=== PATIENT | male | born 1990 | race Caucasian/White ===

== ENCOUNTER 2021-08-08 16:26 | Emergency (ER) | payer OTHER, MEDICAID ==
[~2021-08-08] VITALS: Ht 193 cm; Wt 109.1 kg
[2021-08-08 17:14] LABS: BASOPHILS % (AUTO) 0.4 % (0-1); EOSINOPHILS % (AUTO) 0.1 % (0-6); HEMATOCRIT 43.1 % (42.0-52.0); HEMOGLOBIN 15.2 g/dl (14.0-17.9); LYMPHOCYTES # (AUTO) 2.5 X10'3 (1.1-4.8); LYMPHOCYTES % (AUTO) 23.7 % (21-51); MEAN CORPUSCULAR HGB CONC 35.4 g/dL (33.0-36.5); MEAN CORPUSCULAR VOLUME 90.5 FL (78-98); MEAN PLATELET VOLUME 6.3 FL (7.4-10.4); MONOCYTES # (AUTO) 0.7 X10'3 (0-0.9); MONOCYTES % (AUTO) 6.9 % (2-12); NEUTROPHILS # (AUTO) 7.2 X10'3 (1.8-7.7); NEUTROPHILS % (AUTO) 68.9 % (42-75); PLATELET COUNT 207 X10'3 (140-440); RED BLOOD COUNT 4.76 X10'6 (4.70-6.10); RED CELL DISTRIBUTION WIDTH 14.4 % (11.5-14.5); WHITE BLOOD COUNT 10.5 X10'3 (4.5-11.0)
[2021-08-08 17:30] LABS: ALANINE AMINOTRANSFERASE 39 U/L (12-78); ALBUMIN/GLOBULIN RATIO 1.1 (1.1-1.5); ALKALINE PHOSPHATASE 89 IU/L (46-116); ANION GAP 9 (8-16); ASPARTATE AMINO TRANSFERASE 18 U/L (10-37); BILIRUBIN,TOTAL 0.5 MG/DL (0.1-1.0); BLOOD UREA NITROGEN 17 MG/DL (7-18); BUN/CREATININE RATIO 13.2 (5.4-32.0); CALCIUM 9.1 MG/DL (8.5-10.1); CHLORIDE 108 MMOL/L (99-107); CREATININE 1.29 MG/DL (0.60-1.10); GLUCOSE 95 MG/DL (70-104); SODIUM 144 MMOL/L (135-145); TOTAL CARBON DIOXIDE 27.4 MMOL/L (24-32); TOTAL PROTEIN 7.5 G/DL (6.4-8.2); eGFR 65 ML/MIN
[2021-08-08 17:40] LABS: ETHANOL < 0.010 GM/DL (0.0-0.010); VALPROATE 104 UG/ML (50-100)
[2021-08-08 17:41] LABS: POTASSIUM 4.4 MMOL/L (3.5-5.1)
[2021-08-08 17:55] LABS: COLOR,URINE YELLOW (Yellow); UA COLLECTION TYPE CLN CATCH MIDSTREAM
[2021-08-08 17:56] LABS: CLARITY,URINE SLIGHTLY CLOUDY (Clear); GLUCOSE, URINE NEGATIVE (Neg); KETONES,URINE NEGATIVE (Neg); LEUKOCYTE ESTERASE ,URINE NEGATIVE (Neg); NITRITES, URINE NEGATIVE (Neg); OCCULT BLOOD,URINE NEGATIVE (Neg); PROTEIN,URINE NEGATIVE (Neg); UROBILINOGEN,URINE 0.2 E.U/dL (0.2-1.0)
[2021-08-08 18:01] LABS: BACTERIA,URINE FEW /HPF (Neg); CAL OXALATE CRYSTALS 1+ /HPF (NEGATIVE); MUCUS STRANDS MANY /LPF (Neg); RBC,URINE 0-2 /HPF (0-2); SQUAMOUS EPITHELIAL CELL,UR MODERATE /LPF (FEW); WBC,URINE 0-4 /HPF (0-4)
[2021-08-08 18:09] LABS: URINE AMPHETAMINE SCREEN NEGATIVE (Neg); URINE BARBITUATE SCREEN NEGATIVE (Neg); URINE BENZODIAZEPINES SCREEN NEGATIVE (Neg); URINE CANNABINOID SCREEN POSITIVE (Neg); URINE COCAINE SCREEN NEGATIVE (Neg); URINE METHADONE SCREEN NEGATIVE (Neg); URINE OPIATE SCREEN NEGATIVE (Neg); URINE PHENCYCLIDINE SCREEN NEGATIVE (Neg)
[2021-08-08] MEDS ORDERED: LURA40TA3 PO (19:17)
[2021-08-08] MEDS ORDERED: CLON-473 PO (19:17)
[2021-08-08] MEDS ORDERED: CLON-527 PO (19:17)
[2021-08-08] MEDS ORDERED: DIVA-76 PO (19:17)
[2021-08-08] MEDS ORDERED: KEP500T PO (19:17)
[2021-08-08] MEDS ORDERED: LORazepam 2 mg/ml vial IM ONE (20:10)
[2021-08-08] MEDS ORDERED: divalproex sodium 500mg tablet.DR PO SCH (20:30)
[2021-08-08] MEDS ORDERED: LORazepam 2 mg/ml vial IV ONE ×2 (20:30)
[2021-08-08] MEDS ORDERED: cloNIDine 0.1 mg tablet PO PRN (20:30)
[2021-08-08] MEDS ORDERED: morphine 4 MG/ML inj SYRINge IV ONE (20:50)
[2021-08-08] MEDS ORDERED: ondansetron/PF 4mg/2ml inj IV ONE (20:50)
[2021-08-08] MEDS ORDERED: lurasidone 20mg tablet PO SCH (21:00)
[2021-08-09] MEDS ORDERED: morphine 2 MG/ML inj. syringe IV ONE (00:35)
[2021-08-09] MEDS ORDERED: LORazepam 1 MG tablet PO ONE (03:40)
[2021-08-09] MEDS ORDERED: levetiracetam inj 1,000 MG in normal saline 100ml IV soln 90 ML IV STA (03:48)
[2021-08-09] MEDS: levoTHYROXINE 25mcg tablet PO SCH (07:09)
[2021-08-09] MEDS ORDERED: acetaminophen 325mg tablet PO ONE ×2 (07:15→17:10)
[2021-08-09] MEDS ORDERED: metoclopramide 10mg tablet PO ONE (07:15)
[2021-08-09] MEDS: levetiracetam 250mg tablet PO SCH ×2 (07:31→19:07)
[2021-08-09] MEDS: clonazePAM 1mg tablet PO SCH ×2 (07:32→19:07)
[2021-08-09] MEDS: divalproex sodium 500mg tablet.DR PO SCH ×3 (08:00→20:14)
--- NOTE | 2021-08-09 08:05 | NUR ---
Went to give pt ativan after getting out of the [facility] but it had been dc'd. meds wasted as follows ativan 1mg before attempting to give to pt. Ativan 1 mg after not able to administer.
[2021-08-09] MEDS: lurasidone 20mg tablet PO SCH (08:12)
[2021-08-09] MEDS ORDERED: haloperidol lactate 5mg/ml inj ONE (09:05)
--- NOTE | 2021-08-09 14:01 | NUR ---
pt medicated with depakote at this time,mom at bedside ,provided warm blanket ,no distress noted at this time ,will cont to monitor.
[2021-08-09] MEDS ORDERED: ondansetron/PF 4mg/2ml inj IV PRN (14:40)
--- NOTE | 2021-08-09 15:39 | NUR ---
patient father at [facility] ,will cont to monitor.pt resting in bed quietly.
--- NOTE | 2021-08-09 16:21 | NUR ---
mom and dad at bedside discussed the poc.
--- NOTE | 2021-08-09 18:40 | NUR ---
PPT IS CALM SITTING IN BED TALKING T0 MOM , NO BEHAVIOR ISSUES AT THIS TIME
[2021-08-09] MEDS ORDERED: nicotine 14mg patch - 24hr TD ONE (19:00)
--- NOTE | 2021-08-09 20:40 | NUR ---
MOM LEFT PT IS LAYING IN BED SLEEPING WITH NO BEHAVIOR ISSUES AT THIS TIME
--- NOTE | 2021-08-10 | NUR ---
PT REQ NIGHTTIME SLEEP AIDE CLONIDINE
--- NOTE | 2021-08-10 00:40 | NUR ---
PT IS SLEEPING, NEEDS MET
--- NOTE | 2021-08-10 02:40 | NUR ---
PT IS SLEEPING
[2021-08-10] MEDS ORDERED: LORazepam 1 MG tablet PO ONE (03:25)
--- NOTE | 2021-08-10 03:31 | NUR ---
PT HAD A Sz THAT LASTED 2 SECS, NO POSTICAL, THEN HAD ANOTHER 2 SECS Sz. PT THEN STATED CAN YOU GET ME SOME "DILAUDID, VERSED AND MORPHINE" NOTHING ELSE HELPS. NOTIFED DR MEDEIROS SHE GAVE 1MG PO ATIVAN
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
[2021-08-10] MEDS ORDERED: HYDROcodone/acetaminophen 5mg/325mg tablet PO ONE (04:50)
[2021-08-10] MEDS ORDERED: HYDROcodone/acetaminophen 10/325mg tab PO ONE (04:50)
[2021-08-10] MEDS: clonazePAM 1mg tablet PO SCH (06:54)
[2021-08-10] MEDS: levoTHYROXINE 25mcg tablet PO SCH (06:54)
[2021-08-10] MEDS: levetiracetam 250mg tablet PO SCH (06:54)
[2021-08-10] MEDS: divalproex sodium 500mg tablet.DR PO SCH (06:54)
[2021-08-10] MEDS: lurasidone 20mg tablet PO SCH (06:54)
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
--- NOTE | 2021-08-10 08:41 | NUR ---
The patient was increasing agitated with mother at the bedside. Security, nursing cleaning staff supervisor and male staff from ER on the unit. Per RN cleaning staff supervisor the mother was asked to leave. [facility] is here and update on patient behaviors.
--- NOTE | 2021-08-10 09:16 | NUR ---
[facility] at the bedside and talking with the patient
--- NOTE | 2021-08-10 09:48 | NUR ---
JO[facility] is at the bedside taking a report
[2021-08-10 10:04] VITALS: BP 114/77
== END 2021-08-10 10:06 | disposition home or self-care (01) ==
LOC: ER 16:27
DX: F31.9 Bipolar disorder, unspecified (principal); Z20.822 Contact with and (suspected) exposure to COVID-19; G40.909 Epilepsy, unspecified, not intractable, without status epilepticus; E03.9 Hypothyroidism, unspecified; Z79.899 Other long term (current) drug therapy; Z88.8 Allergy status to other drugs, medicaments and biological substances
CPT/HCPCS: 36415; 80053; 80164; 80177; 80305; 80320; 81001; 84443; 85025; 87635; 96365; 96372; 96375; 96376; 99285; C9803; J1630; J1953; J2060; J2270; J2405; J3490; 96361; 96366

== ENCOUNTER 2023-07-28 14:12 | Outpatient (CLI) | payer MEDICAID ==
[~2023-07-28] VITALS: Ht 193 cm; Wt 97.5 kg
[~2023-07-28 14:12] MED LIST: CLON-473 PO; CLON-527 PO; DIVA-76 PO; KEP500T PO; LURA40TA2 PO
[2023-07-28 15:42] LABS: BASOPHILS % (AUTO) 0.4 % (0-1); EOSINOPHILS % (AUTO) 0.3 % (0-6); LYMPHOCYTES # (AUTO) 3.1 X10'3 (1.1-4.8); LYMPHOCYTES % (AUTO) 33.2 % (21-51); MEAN CORPUSCULAR HEMOGLOBIN 31.5 PG (27.0-31.0); MEAN CORPUSCULAR HGB CONC 34.7 g/dL (33.0-36.5); MEAN CORPUSCULAR VOLUME 90.7 FL (78-98); MEAN PLATELET VOLUME 6.3 FL (7.4-10.4); MONOCYTES # (AUTO) 0.8 X10'3 (0-0.9); MONOCYTES % (AUTO) 8.6 % (2-12); NEUTROPHILS # (AUTO) 5.4 X10'3 (1.8-7.7); NEUTROPHILS % (AUTO) 57.5 % (42-75); PRE OP HEMATOCRIT 41.7 % (42.0-52.0); PRE OP HEMOGLOBIN 14.5 g/dL (14.0-17.9); PRE OP PLATELET COUNT 243 X10'3 (140-440); PRE OP WHITE BLOOD COUNT 9.4 10'3 (4.8-10.8); RED CELL DISTRIBUTION WIDTH 14.3 % (11.5-14.5)
[2023-07-28] MEDS ORDERED: DIVA500T4 PO (15:48)
[2023-07-28] MEDS ORDERED: HYDR-3973 PO (15:48)
[2023-07-28] MEDS ORDERED: ONDA4TAB12 PO (15:48)
[2023-07-28] MEDS ORDERED: EREN70AU2 SQ (15:48)
[2023-07-28] MEDS ORDERED: QUET25TA PO (15:48)
[2023-07-28] MEDS ORDERED: LORA2TAB96 PO (15:48)
[2023-07-28] MEDS ORDERED: GABA300C PO (15:48)
[2023-07-28] MEDS ORDERED: LAMO25TA94 PO (15:48)
[2023-07-28] MEDS ORDERED: UBRO100T PO (15:48)
[2023-07-28] MEDS ORDERED: ATI1T PO (15:48)
[2023-07-28 15:55] LABS: ALBUMIN 3.9 G/DL (3.4-5.0); ALBUMIN/GLOBULIN RATIO 1.1 (1.1-1.5); ALKALINE PHOSPHATASE 84 IU/L (46-116); BLOOD UREA NITROGEN 14 MG/DL (7-18); BUN/CREATININE RATIO 13.6 (10.0-20.0); CALCIUM 9.6 MG/DL (8.5-10.1); CHLORIDE 105 MMOL/L (99-107); CREATININE 1.03 MG/DL (0.60-1.10); PRE OP ALT 23 U/L (30-65); PRE OP ANION GAP 7 (8-16); PRE OP AST 12 U/L (10-37); PRE OP BILIRUB, TOTAL 0.6 MG/DL (0.0-1.0); PRE OP GLUCOSE 87 MG/DL (70-104); PRE OP POTASSIUM 4.5 MMOL/L (3.4-5.1); PRE OP SODIUM 139 MMOL/L (135-145); TOTAL CARBON DIOXIDE 26.6 MMOL/L (24-32); TOTAL PROTEIN 7.3 G/DL (6.4-8.2); eGFR 84 ML/MIN
[2023-08-03] MEDS ORDERED: ringers solution, lacted 1,000 ML IV SCH (05:00)
[2023-08-03] MEDS ORDERED: cefazolin 2gm/D5W 100mL 100 ML IV ONE (05:30)
[2023-08-03] MEDS ORDERED: vancomycin 1,500 MG in NS 300ml IV soln IV ONE (05:30)
[2023-08-03] MEDS ORDERED: famotidine 20mg tablet PO ONE (05:30)
[2023-08-03] MEDS ORDERED: tranexamic acid 650mg tablet PO ONE (05:30)
== END 2023-07-28 23:59 | disposition home or self-care (01) ==
LOC: LAB 14:12 → EDSTATUS 08-03 13:15
PROVIDERS: ATTEND Orthopaedic Surgery
DX: Z01.818 Encounter for other preprocedural examination (principal); M87.052 Idiopathic aseptic necrosis of left femur; M25.562 Pain in left knee; M17.12 Unilateral primary osteoarthritis, left knee
CPT/HCPCS: 36415; 80053; 85025; 87081; 93005; J0690; J3370; J7120

== ENCOUNTER 2023-08-09 12:28 | Emergency (ER) | payer MEDICAID ==
[~2023-08-09] VITALS: Ht 193 cm; Wt 215.0 kg
[~2023-08-09 12:28] MED LIST changes: +ATI1T PO; -CLON-473 PO; -CLON-527 PO; -DIVA-76 PO; +DIVA500T4 PO; +EREN70AU2 SQ; +GABA300C PO; +HYDR-3973 PO; -KEP500T PO; +LAMO25TA94 PO; +LORA2TAB96 PO; -LURA40TA2 PO; +ONDA4TAB12 PO; +QUET25TA PO; +UBRO100T PO
[2023-08-09] MEDS ORDERED: normal saline 1000ML IV soln IV ONE (13:00)
[2023-08-09 13:31] LABS: BASOPHILS % (AUTO) 0.2 % (0-1); EOSINOPHILS % (AUTO) 0 % (0-6); HEMATOCRIT 29.9 % (42.0-52.0); HEMOGLOBIN 10.1 g/dl (14.0-17.9); LYMPHOCYTES # (AUTO) 1.7 X10'3 (1.1-4.8); LYMPHOCYTES % (AUTO) 14.1 % (21-51); MEAN CORPUSCULAR HGB CONC 33.8 g/dL (33.0-36.5); MEAN CORPUSCULAR VOLUME 91.7 FL (78-98); MEAN PLATELET VOLUME 6.2 FL (7.4-10.4); MONOCYTES # (AUTO) 1.3 X10'3 (0-0.9); MONOCYTES % (AUTO) 10.7 % (2-12); NEUTROPHILS # (AUTO) 8.9 X10'3 (1.8-7.7); PLATELET COUNT 250 X10'3 (140-440); RED BLOOD COUNT 3.26 X10'6 (4.70-6.10); RED CELL DISTRIBUTION WIDTH 13.6 % (11.5-14.5); WHITE BLOOD COUNT 11.9 X10'3 (4.5-11.0)
[2023-08-09 13:51] LABS: ALANINE AMINOTRANSFERASE 40 U/L (12-78); ALBUMIN 2.9 G/DL (3.4-5.0); ALBUMIN/GLOBULIN RATIO 0.6 (1.1-1.5); ALKALINE PHOSPHATASE 70 IU/L (46-116); ANION GAP 6 (8-16); ASPARTATE AMINO TRANSFERASE 21 U/L (10-37); BLOOD UREA NITROGEN 7 MG/DL (7-18); CALCIUM 9.3 MG/DL (8.5-10.1); CHLORIDE 101 MMOL/L (99-107); GLUCOSE 104 MG/DL (70-104); POTASSIUM 4.1 MMOL/L (3.5-5.1); SODIUM 137 MMOL/L (135-145); TOTAL CARBON DIOXIDE 30.1 MMOL/L (24-32); TOTAL PROTEIN 7.4 G/DL (6.4-8.2); eCRCL 130 ML/MIN; eGFR 87 ML/MIN
[2023-08-09] MEDS ORDERED: ondansetron/PF 4mg/2ml inj IV ONE (14:30)
[2023-08-09] MEDS ORDERED: morphine 4 MG/ML inj SYRINge IV ONE (14:30)
--- NOTE | 2023-08-09 15:51 | NUR ---
APPLIED ADHESIVE DRESSINGS TO KNEE AND WRAPPED WITH [employer]BINA BANDAGE.
[2023-08-09 15:55] LABS: BILIRUBIN,URINE NEGATIVE (Neg); CLARITY,URINE CLEAR (Clear); COLOR,URINE STRAW (Yellow); GLUCOSE, URINE NEGATIVE (Neg); KETONES,URINE NEGATIVE (Neg); LEUKOCYTE ESTERASE ,URINE NEGATIVE (Neg); NITRITES, URINE NEGATIVE (Neg); OCCULT BLOOD,URINE NEGATIVE (Neg); PROTEIN,URINE NEGATIVE (Neg); UA COLLECTION TYPE CLN CATCH MIDSTREAM
[2023-08-09 16:38] VITALS: BP 129/82; PULSE 105; RESP 16; TEMP 99; O2SAT 98
== END 2023-08-09 16:41 | disposition home or self-care (01) ==
LOC: ER 12:28
DX: M25.562 Pain in left knee (principal); F31.9 Bipolar disorder, unspecified; Z88.6 Allergy status to analgesic agent; Z79.899 Other long term (current) drug therapy
CPT/HCPCS: 36415; 73564; 80053; 81003; 83605; 84145; 85025; 93005; 93971; 96361; 96374; 96375; 99285; J2270; J2405; J7030; A6212; A6449